=== PATIENT | female | born 1965 | race Hispanic/Latino ===

== ENCOUNTER 2016-07-02 12:52 | Emergency (ER) | payer OTHER ==
[2016-07-02] MEDS ORDERED: VALIUM IV ONE (15:08)
[2016-07-02] MEDS ORDERED: NACL 0.9% 1000 ML 1,000 ML IV ONE (15:08)
--- NOTE | 2016-07-02 15:10 | Emergency Department Report ---
Head Injury w/o Laceration - HPI Chief Complaint: Fall Stated Complaint: AMS Time Seen by Provider: 07/02/16 14:59 Occurred When: Today Mechanism: Fall Location: Temporal Severity: mild Head Inj w/o Lac: Yes Loss of Consciousness, No Nausea, No Blurred Vision, No Altered Mental Status, No Headache Other History: This is a 51-year-old female who does endorse history of binge drinking. She states that she's been binging for the last 3 days. She apparently was with family actually here at the hospital today when she had an episode of seizure activity. She fell and struck her head against a doorknob when she had her seizure activity. It was full body shaking for approximately 2 minutes. This is not a new thing for her. She does have seizure disorder since childhood. It is typical for her with alcohol binging to have a breakthrough seizure. She actually indicates last Tylenol was approximately 3 years ago. She denies any fevers. She denies any head pain at this time actually complains of nothing specifically currently. Family is concerned due to the fall and the head injury. Patient does not report drinking habitually. She denies any other injuries again from this fall. ED General PMH - Past Medical History General Medical History: no medical history - Social History Smoking Status: Current Every Day Smoker ED Neuro ROS - Review of Systems Constitutional: no symptoms reported Eyes (ROS): no symptoms reported Head Injury W/O Lac Exam - Exam General: Vital signs noted. No distress. Alert and acting appropriately. Head: Yes Pupils are PERRL, No Hemotympanum, No Hematoma/Ecchymosis, No Epistaxis, No Stepoff/Deformity, No Laceration, No Abrasion Chest, Abd, & Ext: Yes Clear Lung Sounds, Yes Regular Heart Rhythm, No Neck Pain , No Chest Injury/Pain, No Heart Murmur, No Abdominal Tenderness, No Back Tenderness, No Extremity Injury Neuroligical (Head Inj W/O Lac: Yes Normal Speech, Yes Normal Gait, No Lethargy , No Disorientation, No Focal Numbness, No Focal Weakness Exam: Patient coherent and appropriate at this time. HEENT demonstrates no obvious trauma mouth is edentulous no oral lesions are otherwise noted pupils are reactive to light extraocular movements are noted to be intact. Conjunctivae unremarkable sclera is anicteric. Neck is supple without adenopathy chest is clear to auscultation with good air movement heart is regular no rub or gallop is noted abdomen soft nontender throughout Dr. Reny is no tenderness throughout no midline tenderness appreciated neck demonstrates excellent range of motion no tenderness is appreciated extremities demonstrated good distal pedal pulses throughout neurologically moving all extremities without difficulty here. From here answering questions appropriately and interacting properly with family as well ED Disposition Clinical Impression: Seizure Head injury Qualifiers: Encounter type: initial encounter Qualified Code(s): S09.90XA - Unspecified injury of head, initial encounter Disposition: DISCHARGED TO HOME OR SELFCARE Is pt being admited?: No Does the pt Need Aspirin: No Condition: Stable Instructions: Minor Head Injury (ED) Additional Instructions: No drinking alcohol Referrals: PRIMARY CARE, [Primary Care Provider] - 3-5 Days Time of Disposition: 16:46 Results Result Diagrams: 07/02/16 15:13 07/02/16 15:13 Abnormal lab results 07/02/16 07/02/16 Range/Units 15:13 15:13 WBC 11.7 H (4.5-11.0) K/mm3 MCH 26 L (28-32) pg RDW 25.4 H (13.2-15.2) % Sodium 136 L (137-145) mmol/L Chloride 92.3 L (98-107) mmol/L BUN 6 L (7-17) mg/dL Creatinine 0.3 L (0.7-1.2) mg/dL Glucose 107 H (65-100) mg/dL All other labs normal. Patient is noted here to be appropriate neurologically. She is moving all extremities appropriately and entered answering questions appropriately. I did have a long conversation with patient and family regarding alcohol cessation. I did also have conversation regarding head injury and instructions regarding this. Family will be with the patient tonight will be able to continue to observe her. She did have a CT study done here demonstrating mild scalp hematoma with contusion otherwise unremarkable study. No intracranial bleed was noted. Patient safe for home.
[2016-07-02 15:31] LABS: Hematocrit 39.4 % (30.3-42.9); Hemoglobin 12.9 gm/dl (10.1-14.3); Mean Corpuscular HGB Conc 33 % (30-34); Mean Corpuscular Volume 79 fl (79-97); Platelet Count 161 K/mm3 (140-440); Red Blood Count 5.02 M/mm3 (3.65-5.03); White Blood Count 11.7 K/mm3 (4.5-11.0)
[2016-07-02 15:32] LABS: Mean Corpuscular Hemoglobin 26 pg (28-32); Red Cell Distribution Width 25.4 % (13.2-15.2)
[2016-07-02 15:49] LABS: Alanine Aminotransferase 19 units/L (7-56); Albumin 4.3 g/dL (3.9-5); Albumin/Globulin Ratio 1.3 %; Alkaline Phosphatase 71 units/L (35-129); Anion Gap 20 mmol/L; Bilirubin,Total 0.6 mg/dL (0.1-1.2); Blood Urea Nitrogen 6 mg/dL (7-17); Calcium 9.3 mg/dL (8.4-10.2); Carbon Dioxide 28 mmol/L (22-30); Chloride 92.3 mmol/L (98-107); Glucose 107 mg/dL (65-100); Potassium 3.9 mmol/L (3.6-5.0); Sodium 136 mmol/L (137-145); Total Protein 7.5 g/dL (6.3-8.2)
--- NOTE | 2016-07-02 16:30 | Cat Scan Report ---
FINAL REPORT PROCEDURE: CT HEAD/BRAIN WO CON TECHNIQUE: Computerized tomography of the head was performed without contrast material. HISTORY: Fall pain COMPARISON: No prior studies are available for comparison. FINDINGS: There likely minimal edema in the left parietal scalp. No calvarial fracture is seen. Minimal mucosal thickening is seen in the right maxillary sinus. Mastoid air cells are clear. Cerebral ventricles are normal in size. No acute intracranial hemorrhage or mass effect is seen. No CVA is seen. IMPRESSION: No calvarial fracture or acute intracranial hemorrhage is seen.
[2016-07-02 16:54] LABS: Basophils % (Manual) 0 % (0.0-1.8); Blastocytes % (Manual) 0 %; Eosinophils % (Manual) 0 % (0.0-4.3)
[2016-07-02 16:55] LABS: Anisocytosis 1+; Hypochromasia 1+; Stomatocytes 1+
[2016-07-02 16:56] LABS: Diff Status Complete; Platelet Estimate Consistent w Auto
[2016-07-02 17:27] VITALS: BP 140/73
== END 2016-07-02 17:05 | disposition home or self-care (01) ==
LOC: ED 12:52
DX: S09.90XA Unspecified injury of head, initial encounter (principal); R56.9 Unspecified convulsions; F17.200 Nicotine dependence, unspecified, uncomplicated; W19.XXXA Unspecified fall, initial encounter; Y93.89 Activity, other specified; Y99.9 Unspecified external cause status; Y92.89 Other specified places as the place of occurrence of the external cause
CPT/HCPCS: 36415; 70450; 80053; 85007; 85025; 96361; 96374; 99284; J3360; J7030

== ENCOUNTER 2016-11-21 15:32 | Inpatient (IN) | payer OTHER ==
[2016-11-21 16:36] LABS: Basophils % (Auto) 1.4 % (0.0-1.8); Eosinophils % (Auto) 1.1 % (0.0-4.3); Hematocrit 40.3 % (30.3-42.9); Hemoglobin 13.4 gm/dl (10.1-14.3); Mean Corpuscular HGB Conc 33 % (30-34); Mean Corpuscular Hemoglobin 28 pg (28-32); Mean Corpuscular Volume 84 fl (79-97); Platelet Count 219 K/mm3 (140-440); Red Blood Count 4.81 M/mm3 (3.65-5.03); White Blood Count 7.9 K/mm3 (4.5-11.0)
[2016-11-21 16:37] LABS: Red Cell Distribution Width 20.6 % (13.2-15.2)
[2016-11-21 16:57] LABS: Alanine Aminotransferase 55 units/L (7-56); Albumin 4.3 g/dL (3.9-5); Albumin/Globulin Ratio 1.4 %; Alkaline Phosphatase 69 units/L (35-129); Anion Gap 32 mmol/L; Blood Urea Nitrogen 5 mg/dL (7-17); Calcium 9.1 mg/dL (8.4-10.2); Carbon Dioxide 19 mmol/L (22-30); Chloride 83.8 mmol/L (98-107); Glucose 132 mg/dL (65-100); Potassium 3.7 mmol/L (3.6-5.0); Sodium 131 mmol/L (137-145); Total Protein 7.4 g/dL (6.3-8.2)
[2016-11-21] MEDS ORDERED: LIBRIUM PO ONE (17:14)
[2016-11-21] MEDS ORDERED: BOOSTRIX IM ONE ×2 (17:15→20:15)
--- NOTE | 2016-11-21 17:16 | Emergency Department Report ---
ED General Adult HPI - General Chief complaint: Seizure Stated complaint: SEIZURE Time Seen by Provider: 11/21/16 17:04 Source: patient, family, EMS (ems notes not available at time of chart dictation), RN notes reviewed, old records reviewed Mode of arrival: Stretcher Limitations: No Limitations - History of Present Illness Initial comments: This is a 51-year-old female. She is previously known to me. She reports a history of alcohol abuse, and intermittent binge drinking. She is accompanied by family. Family reports that they were with the patient, and she suddenly had an episode of loss of consciousness. Family reports that there is no convulsive activity, or shaking. Family reports this is never happened before, patient reports this is never happened before. Patient last consumed beers yesterday. The patient complains of mild headache. There is no chest pain. There is no shortness of breath. There is no neck pain. There is no homicidality or suicidality. There is no leg pain. There is no leg swelling. No recent trips greater than 4 hours. No recent hospital admissions. The patient reports that she has no recollection of alcohol withdrawal seizures. She does report that she feels "a little shaky." No cardiac workup recently. -: Sudden Consistency: now resolved Improves with: none Worsens with: none Associated Symptoms: syncope - Related Data Home Medications Medication Instructions Recorded Confirmed Last Taken No Known Home Medications [No 11/21/16 11/21/16 Unknown Reported Home Medications] Allergies Allergy/AdvReac Type Severity Reaction Status Date / Time codeine Allergy Rash Verified 11/21/16 16:27 ED Review of Systems ROS: Stated complaint: SEIZURE Other details as noted in HPI Constitutional: malaise, weakness Eyes: denies: vision change ENT: denies: epistaxis Respiratory: denies: shortness of breath Cardiovascular: syncope Gastrointestinal: denies: abdominal pain Genitourinary: denies: dysuria Musculoskeletal: denies: back pain Skin: lesions Neurological: headache, weakness Psychiatric: denies: homicidal thoughts, suicidal thoughts ED Past Medical Hx - Past Medical History Previous Medical History?: Yes Hx Hypertension: Yes Hx Seizures: Yes Hx Psychiatric Treatment: Yes (ETOH abuse) - Social History Smoking Status: Current Every Day Smoker Substance Use Type: Alcohol - Medications Home Medications: Home Medications Medication Instructions Recorded Confirmed Last Taken Type No Known Home Medications [No 11/21/16 11/21/16 Unknown History Reported Home Medications] ED Physical Exam - General Limitations: No Limitations General appearance: alert, in no apparent distress - Head Head exam: Present: normocephalic, other (multiple superficial facial abrasions are noted) - Eye Eye exam: Present: normal appearance, PERRL, EOMI, other (visual acuity intact to finger counting, color perception, reading at a close distance). Absent: nystagmus - ENT ENT exam: Present: normal exam, normal orophraynx, mucous membranes moist, TM's normal bilaterally, normal external ear exam, other (negative nasal septal hematoma. Negative hemotympanum) - Neck Neck exam: Present: normal inspection, full ROM. Absent: tenderness, meningismus - Respiratory Respiratory exam: Present: normal lung sounds bilaterally. Absent: respiratory distress, wheezes, rales, rhonchi, stridor, chest wall tenderness, accessory muscle use, decreased breath sounds, prolonged expiratory - Cardiovascular Cardiovascular Exam: Present: regular rate, normal rhythm, normal heart sounds. Absent: bradycardia, tachycardia, irregular rhythm, systolic murmur, diastolic murmur, rubs, gallop - GI/Abdominal GI/Abdominal exam: Present: soft, normal bowel sounds. Absent: distended, tenderness, guarding, rebound, rigid, pulsatile mass - Extremities Exam Extremities exam: Present: normal inspection, full ROM, normal capillary refill. Absent: pedal edema, joint swelling, calf tenderness - Back Exam Back exam: Present: normal inspection, full ROM. Absent: tenderness, CVA tenderness (R), CVA tenderness (L), muscle spasm, paraspinal tenderness, vertebral tenderness - Neurological Exam Neurological exam: Present: alert (tongue fasciculations noted), oriented X3, other (Extraocular movements intact. Tongue midline. No facial droop. Facial sensation intact to light touch in the V1, V2, V3 distribution bilaterally. 5 and 5 strength in 4 extremities.. Sensation is intact to light touch in 4 extremities.). Absent: motor sensory deficit - Psychiatric Psychiatric exam: Present: anxious. Absent: homicidal ideation, suicidal ideation - Skin Skin exam: Present: warm, dry, intact, normal color. Absent: rash ED Course Vital Signs 11/21/16 11/21/16 11/21/16 15:40 15:45 18:45 Temperature 97.6 F Pulse Rate 104 H 94 H 82 Respiratory 18 16 16 Rate Blood Pressure 142/82 Blood Pressure 139/81 144/75 [Right] O2 Sat by Pulse 96 94 93 Oximetry 11/21/16 11/21/16 20:17 22:54 Temperature Pulse Rate 84 83 Respiratory 16 16 Rate Blood Pressure Blood Pressure 152/74 127/76 [Right] O2 Sat by Pulse 93 92 Oximetry ED Medical Decision Making - Lab Data Result diagrams: 11/22/16 05:37 11/22/16 05:37 Vital Signs 11/21/16 15:40 Temperature 97.6 F Pulse Rate 104 H Respiratory 18 Rate Blood Pressure 142/82 O2 Sat by Pulse 96 Oximetry Lab Results 11/21/16 11/21/16 11/21/16 Range/Units 15:45 15:45 15:45 WBC 7.9 (4.5-11.0) K/mm3 RBC 4.81 (3.65-5.03) M/mm3 Hgb 13.4 (10.1-14.3) gm/dl Hct 40.3 (30.3-42.9) % MCV 84 (79-97) fl MCH 28 (28-32) pg MCHC 33 (30-34) % RDW 20.6 H (13.2-15.2) % Plt Count 219 (140-440) K/mm3 Lymph % (Auto) 14.9 (13.4-35.0) % Lucas % (Auto) 4.9 (0.0-7.3) % Eos % (Auto) 1.1 (0.0-4.3) % Baso % (Auto) 1.4 (0.0-1.8) % Lymph # 1.2 (1.2-5.4) K/mm3 Lucas # 0.4 (0.0-0.8) K/mm3 Eos # 0.1 (0.0-0.4) K/mm3 Baso # 0.1 (0.0-0.1) K/mm3 Seg Neutrophils % 77.7 H (40.0-70.0) % Seg Neutrophils # 6.2 (1.8-7.7) K/mm3 PT (12.2-14.9) Sec. INR (0.87-1.13) Sodium 131 L (137-145) mmol/L Potassium 3.7 (3.6-5.0) mmol/L Chloride 83.8 L (98-107) mmol/L Carbon Dioxide 19 L (22-30) mmol/L Anion Gap 32 mmol/L BUN 5 L (7-17) mg/dL Creatinine 0.4 L (0.7-1.2) mg/dL Estimated GFR > 60 ml/min BUN/Creatinine Ratio 12.50 % Glucose 132 H (65-100) mg/dL Calcium 9.1 (8.4-10.2) mg/dL Phosphorus (2.5-4.5) mg/dL Magnesium 1.80 (1.7-2.3) mg/dL Total Bilirubin 0.60 (0.1-1.2) mg/dL AST 69 H (5-40) units/L ALT 55 (7-56) units/L Alkaline Phosphatase 69 (35-129) units/L Total Creatine Kinase (30-135) units/L Total Protein 7.4 (6.3-8.2) g/dL Albumin 4.3 (3.9-5) g/dL Albumin/Globulin Ratio 1.4 % Plasma/Serum Alcohol < 0.01 (0-0.07) gm% 11/21/16 11/21/16 Range/Units 17:25 17:25 WBC (4.5-11.0) K/mm3 RBC (3.65-5.03) M/mm3 Hgb (10.1-14.3) gm/dl Hct (30.3-42.9) % MCV (79-97) fl MCH (28-32) pg MCHC (30-34) % RDW (13.2-15.2) % Plt Count (140-440) K/mm3 Lymph % (Auto) (13.4-35.0) % Lucas % (Auto) (0.0-7.3) % Eos % (Auto) (0.0-4.3) % Baso % (Auto) (0.0-1.8) % Lymph # (1.2-5.4) K/mm3 Lucas # (0.0-0.8) K/mm3 Eos # (0.0-0.4) K/mm3 Baso # (0.0-0.1) K/mm3 Seg Neutrophils % (40.0-70.0) % Seg Neutrophils # (1.8-7.7) K/mm3 PT 12.6 (12.2-14.9) Sec. INR 0.90 (0.87-1.13) Sodium (137-145) mmol/L Potassium (3.6-5.0) mmol/L Chloride (98-107) mmol/L Carbon Dioxide (22-30) mmol/L Anion Gap mmol/L BUN (7-17) mg/dL Creatinine (0.7-1.2) mg/dL Estimated GFR ml/min BUN/Creatinine Ratio % Glucose (65-100) mg/dL Calcium (8.4-10.2) mg/dL Phosphorus 2.70 (2.5-4.5) mg/dL Magnesium 2.00 (1.7-2.3) mg/dL Total Bilirubin (0.1-1.2) mg/dL AST (5-40) units/L ALT (7-56) units/L Alkaline Phosphatase (35-129) units/L Total Creatine Kinase 122 (30-135) units/L Total Protein (6.3-8.2) g/dL Albumin (3.9-5) g/dL Albumin/Globulin Ratio % Plasma/Serum Alcohol (0-0.07) gm% - EKG Data -: EKG Interpreted by Me - EKG Data When compared to previous EKG there are: previous EKG unavailable 11/21/16 19:51 Normal sinus, 96 bpm, normal axis, QTC 477 ms, poor R wave progression, abnormal EKG, not morphologically consistent with STEMI - Radiology Data Radiology results: report reviewed, image reviewed interpreted by me: X-ray the chest is negative Noncontrast CT scan of the brain is negative - Medical Decision Making Seizure, syncope, alcohol withdrawal seizure, structural cardiac disease, acute coronary syndrome, Assessment and plan: 51-year-old female with history of syncope/loss of consciousness. The family is quite certain that there is no convulsive activity. The patient is clinically sober at this time, with a GCS of 15, NIH score of 0. She is minimal tongue fasciculations at this time, there is no midline cervical spine pain or tenderness, patient does not require 1013, nor does she require imaging of the cervical spine. I highly doubt alcohol withdrawal seizure, although it seems somewhat atypical that the patient would simply lose consciousness without convulsant like activity. Given that this is the leading diagnosis, I do not believe the patient requires antiepileptic drug therapy at this time. She is treated empirically with IV fluids/banana bag, and chlordiazepoxide. She is given a tetanus vaccination. Noncontrast CT scan of the brain is negative. Laboratory studies to restrict hypochloremia, otherwise mostly unremarkable. Given uncertainty for syncope versus alcohol withdrawal seizure, plan to admit the patient for observation and treatment. The case is presented to the Hospital physician, Dr. Carl, who accepts the patient to his service. Critical care attestation.: If time is entered above; I have spent that time in minutes in the direct care of this critically ill patient, excluding procedure time. ED Disposition Clinical Impression: Hypochloremia Syncope Qualifiers: Encounter type: initial encounter Qualified Code(s): T67.1XXA - Heat syncope, initial encounter Alcohol dependence Qualifiers: Substance use status: uncomplicated Qualified Code(s): F10.20 - Alcohol dependence, uncomplicated Disposition: DC-09 OP ADMIT IP TO THIS HOSP Is pt being admited?: Yes Condition: Good
--- NOTE | 2016-11-21 17:38 | Admit Criteria Form ---
Admission Criteria Documentation: SYNCOPE Clinical Indications for Admission to Inpatient Care ( Place 'X' for any and all applicable criteria): Admission is indicated for syncope and 1 or more of the following(1)(2)(3)(4)(5) (6)(7): [ ]I. Hemodynamic instability [ ]II. Suspicion of imminently dangerous cause (eg, subarachnoid hemorrhage, pulmonary embolism) [ ]III. Syncope causing injury requiring hospitalization [ ]IV. Respiratory distress [ ]V. Acute coronary syndrome identified. See Myocardial Infarction or Angina guideline [X]V. Inpatient admission required rather than observation care (Also use Syncope: Observation Care Criteria as appropriate) because of 1 or more of the following: [ ]1) Cardiac arrhythmias of immediate concern identified or strongly suspected (eg, needs electrophysiologic study) [ ]2) Structural cardiac disorder (eg, aortic stenosis) suspected as cause that requires immediate treatment [ ]3) Neurologic signs or symptoms that are severe or persistent (eg, stroke, seizures, altered mental status) [ ]4) Severe electrolyte abnormalities requiring inpatient care [ ]5) Respiratory symptoms (eg, dyspnea, tachypnea) that are severe or persistent [ ]6) Dehydration that is severe or persistent [ ]7) Continuous intravenous infusion of anticoagulation, platelet inhibitor, vasoactive, or antiarrhythmic medication(15)(16 [ ]8) Pulmonary artery catheter monitoring [ ]9) Temporary pacemaker placement [ ]10) Emergent cardioversion [X]11) Other condition,treatment,or monitoring requiring inpatient admission Extended stay beyond goal length of stay may be needed for(28) [ ]a) Dangerous arrhythmia(15)(23)(27)(29) [ ]b) Myocardial ischemia [ ]c) Seizure disorder [ ]d) Syncope-related injuries The original [employer] content created by [email or web address] has been revised. The portions of the content which have been revised are identified through the use of italic text or in bold, and [email or web address] has neither reviewed nor approved the modified material. All other unmodified content is copyright [email or web address]. Please see references footnoted in the original [email or web address] edition 2017 Admission Criteria Met: Yes
[2016-11-21 17:57] LABS: Phosphorous 2.7 mg/dL (2.5-4.5)
--- NOTE | 2016-11-21 17:57 | Cat Scan Report ---
FINAL REPORT EXAM: CT HEAD/BRAIN WO CON HISTORY: seizure vs syncope TECHNIQUE: CT of the head was performed without intravenous contrast. PRIORS: 07/02/2016. FINDINGS: The ventricles are normal in shape and position. The ventricles are nondilated. No intracranial hemorrhage, mass, mass effect, midline shift or evidence of acute ischemic infarct. The basilar cisterns are patent. The paranasal sinuses are clear. There is midline frontal extracranial soft tissue swelling. The calvarium is intact. The orbits are intact. The mastoid air cells are clear. IMPRESSION: 1. No acute intracranial abnormality. 2. Frontal extracranial soft tissue swelling.
[2016-11-21 18:06] LABS: INR 0.9 (0.87-1.13)
[2016-11-21] MEDS ORDERED: VITAMIN B-1 100 MG, FOLVITE 1 MG, INFUVITE 10 ML in NACL 0.9% 1000 ML 1,000 ML IV ONE (18:14)
[2016-11-21] MEDS ORDERED: LIBRIUM ONE (20:14)
[2016-11-21] MEDS ORDERED: ZOFRAN IV PRN (21:57)
[2016-11-21] MEDS ORDERED: MILK OF MAGNESIA PO PRN (21:57)
[2016-11-21] MEDS ORDERED: DULCOLAX PR PRN (21:57)
[2016-11-21] MEDS ORDERED: PERCOCET 5/325 PO PRN (21:57)
[2016-11-21] MEDS ORDERED: TYLENOL PO PRN (21:57)
[2016-11-21] MEDS ORDERED: AMBIEN PO PRN (21:57)
[2016-11-21] MEDS ORDERED: DILAUDID IV PRN (21:57)
--- NOTE | 2016-11-21 21:57 | History and Physical Report ---
History of Present Illness Date of examination: 11/21/16 Date of admission: 11/21/16 Chief complaint: Passed out from a sitting posture around 3 pm History of present illness: 51 y/o female with no significant PMH except for Etoh and Nicotine dependence comes in for passing out suddenly.She was in a sitting posture and felt lightheaded.Fell to ground and sustained superficial abrasions to face.LOC for a a minute or two.No seizures.Family was a witness to her syncope.No chest pain.No SOB .No diaphoresis /Palpitations. Past History Past Medical History: No medical history Past Surgical History: No surgical history Social history: smoking (1 ppd), alcohol abuse (6 to 8 beers per day) Family history: no significant family history Medications and Allergies Allergies Allergy/AdvReac Type Severity Reaction Status Date / Time codeine Allergy Rash Verified 11/21/16 16:27 Home Medications Medication Instructions Recorded Confirmed Last Taken Type No Known Home Medications [No 11/21/16 11/21/16 Unknown History Reported Home Medications] Active Meds: Active Medications Thiamine HCl 100 mg/ Folic Acid 1 mg/ Multivitamins/Minerals 10 ml/ Sodium Chloride 1,011.2 mls @ 250 mls/hr IV ONCE.ED ONE Stop: 11/21/16 22:16 Review of Systems All systems: negative Constitutional: no weight loss, no weight gain, no fever, no chills, no sweats, no night sweats Ears, nose, mouth and throat: other (Facial abrasions alvarado nose), no dysphagia, no hoarseness, no sore throat, no swelling in throat Breasts: deferred Cardiovascular: syncope, lightheadedness, no chest pain, no orthopnea, no palpitations, no rapid/irregular heart beat, no edema, no shortness of breath, no dyspnea on exertion, no paroxysmal nocturnal dyspnea Respiratory: no cough, no cough with sputum, no excessive sputum, no hemoptysis , no shortness of breath, no dyspnea on exertion, no congestion, no wheezing Gastrointestinal: no abdominal pain, no nausea, no vomiting, no diarrhea, no constipation, no change in bowel habits, no hematemesis, no coffee ground emesis Genitourinary Female: no dysuria, no urinary frequency, no urgency, no stress incontinence, no post void dribbling, no incomplete emptying, no urge incontinence Musculoskeletal: no neck stiffness, no neck pain, no shooting arm pain, no arm numbness/tingling, no low back pain, no shooting leg pain, no leg numbness/ tingling, no redness of joints Integumentary: no rash, no pruritis, no redness, no sores, no wounds, no jaundice, no boils, no blisters Neurological: syncope, no head injury, no transient paralysis, no paralysis, no weakness, no parathesias, no numbness, no tingling, no seizures, no tremors, no ataxia, no lack of coordination Psychiatric: no anxiety, no memory loss, no change in sleep habits, no sleep disturbances, no insomnia, no hypersomnia, no change in appetite, no change in libido Endocrine: no cold intolerance, no heat intolerance, no polyphagia, no excessive thirst, no polydipsia, no polyuria, no nocturia, no excessive sweating , no flushing, no weight change Hematologic/Lymphatic: no easy bruising, no easy bleeding Allergic/Immunologic: no urticaria, no allergic rhinitis, no wheezing Exam - Physical Exam Narrative exam: In No distress - Constitutional Vitals: Temp Pulse Resp BP Pulse Ox 97.6 F 104 H 18 142/82 96 11/21/16 15:40 11/21/16 15:40 11/21/16 15:40 11/21/16 15:40 11/21/16 15:40 General appearance: Present: no acute distress, well-nourished - EENT Eyes: Present: PERRL ENT: hearing intact, clear oral mucosa, other (Facial abrasions alvarado nose) - Neck Neck: Present: supple, normal ROM - Respiratory Respiratory effort: normal Respiratory: bilateral: CTA - Cardiovascular Heart rate: 76 Rhythm: regular Heart Sounds: Present: S1 & S2. Absent: rub, click - Extremities Extremities: no ischemia, pulses intact, pulses symmetrical, No edema Peripheral Pulses: within normal limits - Abdominal General gastrointestinal: Present: soft, non-tender, non-distended, normal bowel sounds Female genitourinary: Present: normal - Integumentary Integumentary: Present: clear, warm, dry - Musculoskeletal Musculoskeletal: gait normal, strength equal bilaterally - Psychiatric Psychiatric: appropriate mood/affect, intact judgment & insight - Neurologic Neurologic: CNII-XII intact, moves all extremities - Allied Health Allied health notes reviewed: nursing, case management Results - Labs CBC & Chem 7: 11/21/16 15:45 11/21/16 15:45 Labs: Laboratory Last Values WBC 7.9 K/mm3 (4.5-11.0) 11/21/16 15:45 RBC 4.81 M/mm3 (3.65-5.03) 11/21/16 15:45 Hgb 13.4 gm/dl (10.1-14.3) 11/21/16 15:45 Hct 40.3 % (30.3-42.9) 11/21/16 15:45 MCV 84 fl (79-97) 11/21/16 15:45 MCH 28 pg (28-32) 11/21/16 15:45 MCHC 33 % (30-34) 11/21/16 15:45 RDW 20.6 % (13.2-15.2) H 11/21/16 15:45 Plt Count 219 K/mm3 (140-440) 11/21/16 15:45 Lymph % (Auto) 14.9 % (13.4-35.0) 11/21/16 15:45 [place] % (Auto) 4.9 % (0.0-7.3) 11/21/16 15:45 Eos % (Auto) 1.1 % (0.0-4.3) 11/21/16 15:45 Baso % (Auto) 1.4 % (0.0-1.8) 11/21/16 15:45 Lymph # 1.2 K/mm3 (1.2-5.4) 11/21/16 15:45 [place] # 0.4 K/mm3 (0.0-0.8) 11/21/16 15:45 Eos # 0.1 K/mm3 (0.0-0.4) 11/21/16 15:45 Baso # 0.1 K/mm3 (0.0-0.1) 11/21/16 15:45 Seg Neutrophils % 77.7 % (40.0-70.0) H 11/21/16 15:45 Seg Neutrophils # 6.2 K/mm3 (1.8-7.7) 11/21/16 15:45 PT 12.6 Sec. (12.2-14.9) 11/21/16 17:25 INR 0.90 (0.87-1.13) 11/21/16 17:25 Sodium 131 mmol/L (137-145) L 11/21/16 15:45 Potassium 3.7 mmol/L (3.6-5.0) 11/21/16 15:45 Chloride 83.8 mmol/L (98-107) L 11/21/16 15:45 Carbon Dioxide 19 mmol/L (22-30) L 11/21/16 15:45 Anion Gap 32 mmol/L 11/21/16 15:45 BUN 5 mg/dL (7-17) L 11/21/16 15:45 Creatinine 0.4 mg/dL (0.7-1.2) L 11/21/16 15:45 Estimated GFR > 60 ml/min 11/21/16 15:45 BUN/Creatinine Ratio 12.50 % 11/21/16 15:45 Glucose 132 mg/dL (65-100) H 11/21/16 15:45 Calcium 9.1 mg/dL (8.4-10.2) 11/21/16 15:45 Phosphorus 2.70 mg/dL (2.5-4.5) 11/21/16 17:25 Magnesium 2.00 mg/dL (1.7-2.3) 11/21/16 17:25 Total Bilirubin 0.60 mg/dL (0.1-1.2) 11/21/16 15:45 AST 69 units/L (5-40) H 11/21/16 15:45 ALT 55 units/L (7-56) 11/21/16 15:45 Alkaline Phosphatase 69 units/L (35-129) 11/21/16 15:45 Total Creatine Kinase 122 units/L (30-135) 11/21/16 17:25 Total Protein 7.4 g/dL (6.3-8.2) 11/21/16 15:45 Albumin 4.3 g/dL (3.9-5) 11/21/16 15:45 Albumin/Globulin Ratio 1.4 % 11/21/16 15:45 Plasma/Serum Alcohol < 0.01 gm% (0-0.07) 11/21/16 15:45 Short CBC 11/21/16 Range/Units 15:45 WBC 7.9 (4.5-11.0) K/mm3 Hgb 13.4 (10.1-14.3) gm/dl Hct 40.3 (30.3-42.9) % Plt Count 219 (140-440) K/mm3 BMP 11/21/16 15:45 Sodium 131 L Potassium 3.7 Chloride 83.8 L Carbon Dioxide 19 L BUN 5 L Creatinine 0.4 L Glucose 132 H Calcium 9.1 Cardiac Enzymes 11/21/16 11/21/16 Range/Units 17:25 23:23 Total Creatine Kinase 122 132 (30-135) units/L CK-MB (CK-2) 3.6 (0.0-4.0) ng/mL Troponin T < 0.010 (0.00-0.029) ng/mL Liver Function 11/21/16 Range/Units 15:45 Total Bilirubin 0.60 (0.1-1.2) mg/dL AST 69 H (5-40) units/L ALT 55 (7-56) units/L Alkaline Phosphatase 69 (35-129) units/L Albumin 4.3 (3.9-5) g/dL Urine 11/21/16 Range/Units 21:16 Urine Color Straw (Yellow) Urine pH 5.0 (5.0-7.0) Ur Specific [place] 1.005 (1.003-1.030) Urine Protein <15 mg/dl (Negative) mg/dL Urine Glucose (UA) Neg (Negative) mg/dL - Imaging and Cardiology EKG: report reviewed (NSR non specific ST T wave changes) CT Scan - head: report reviewed (NAF) Assessment and Plan Advance Directives: Yes (Full code) VTE prophylaxis?: Chemical Plan of care discussed with patient/family: Yes - Patient Problems (1) Syncope Current Visit: Yes Status: Acute Qualifiers: Syncope type: S Encounter type: initial encounter Qualified Code(s): T67.1XXA - Heat syncope, initial encounter Plan to address problem: Probably vasovagal or secondary to dehydration due to Etoh.Stress test and CDS ordered.IV fluids for now (2) Alcohol dependence Current Visit: Yes Status: Acute Qualifiers: Substance use status: uncomplicated Complication of substance-induced condition: C Qualified Code(s): F10.20 - Alcohol dependence, uncomplicated Plan to address problem: Initiated [facility] protocol (3) Nicotine dependence Current Visit: Yes Status: Chronic Qualifiers: Nicotine product type: cigarettes Substance use status: S Qualified Code( s): F17.210 - Nicotine dependence, cigarettes, uncomplicated Plan to address problem: Counselled and Nicoderm patch initiated (4) DVT prophylaxis Current Visit: Yes Status: Acute (5) DVT prophylaxis Current Visit: Yes Status: Acute (6) DVT prophylaxis Current Visit: Yes Status: Acute Plan to address problem: Lovenox 40 mg sq qd
[2016-11-21] MEDS ORDERED: D5NS 1,000 ML IV SCH (22:00)
[2016-11-21] MEDS ORDERED: HABITROL TD ONE (22:02)
[2016-11-21 22:21] LABS: Bacteria,Urine 1+ /HPF (Negative); Bilirubin,Urine NEG (Negative); Blood,Urine SM (Negative); Ketones,Urine 80 mg/dL (Negative); Leukocyte Esterase,Urine NEG (Negative); Nitrite,Urine NEG (Negative); Protein,Urine <15 mg/dL mg/dL (Negative); Urobilinogen,Urine < 2.0 mg/dL (<2.0); WBC,Urine < 1.0 /HPF (0.0-6.0)
[2016-11-22 00:10] LABS: Creatine Kinase 132 units/L (30-135); Creatine Kinase MB 3.6 ng/mL (0.0-4.0)
[2016-11-22 06:38] LABS: Basophils % (Auto) 0.9 % (0.0-1.8); Eosinophils % (Auto) 3.3 % (0.0-4.3); Hematocrit 39.4 % (30.3-42.9); Hemoglobin 13.3 gm/dl (10.1-14.3); Mean Corpuscular HGB Conc 34 % (30-34); Mean Corpuscular Hemoglobin 28 pg (28-32); Mean Corpuscular Volume 83 fl (79-97); Platelet Count 184 K/mm3 (140-440); Red Blood Count 4.74 M/mm3 (3.65-5.03); White Blood Count 5.3 K/mm3 (4.5-11.0)
[2016-11-22 06:54] LABS: Creatine Kinase MB 3.6 ng/mL (0.0-4.0)
[2016-11-22 06:57] LABS: Alanine Aminotransferase 44 units/L (7-56); Albumin/Globulin Ratio 1.5 %; Alkaline Phosphatase 63 units/L (35-129); Anion Gap 22 mmol/L; Blood Urea Nitrogen 3 mg/dL (7-17); Carbon Dioxide 25 mmol/L (22-30); Chloride 93.8 mmol/L (98-107); Creatine Kinase 115 units/L (30-135); Glucose 79 mg/dL (65-100); Potassium 3.8 mmol/L (3.6-5.0); Sodium 137 mmol/L (137-145); Total Protein 6.7 g/dL (6.3-8.2)
[2016-11-22 07:01] LABS: Red Cell Distribution Width 20.3 % (13.2-15.2)
--- NOTE | 2016-11-22 07:46 | XRay Report ---
AP CHEST: HISTORY: Syncope AP view of the chest demonstrates a normal mediastinal and cardiac contour with clear lungs and normal bony and soft tissue structures. IMPRESSION: Unremarkable AP chest.
[2016-11-22] MEDS ORDERED: 1: FOLVITE 1 MG, INFUVITE 10 ML, VITAMIN B-1 100 MG in NACL 0.9% 1000 ML 988.8 ML 2: NA IV SCH (09:00)
--- NOTE | 2016-11-22 09:09 | Progress Note ---
Assessment and Plan Assessment and plan: 51 y/o female with no significant PMH except for Etoh and Nicotine dependence comes in for passing out suddenly.She was in a sitting posture and felt lightheaded. Fell to ground and sustained superficial abrasions to face. LOC for a a minute or two. No seizures. Family was a witness to her syncope. No chest pain. No SOB . No diaphoresis /Palpitations. No neck pain. She does demonstrate full range of motion in her neck. She reports a prior episode about 6 months ago similar to the same incident. She denies any seizure history. (1) Syncope Current Visit: Yes Status: Acute Qualifiers: Syncope type: S Encounter type: initial encounter Qualified Code(s): T67.1XXA - Heat syncope, initial encounter Plan to address problem: Probably vasovagal or secondary to dehydration due to Etoh.Stress test and CDS ordered.IV fluids for now will add echocardiogram and considering prior episode will benefit from cardiolology eval for possible event monitor. (2) Alcohol dependence Current Visit: Yes Status: Acute Qualifiers: Substance use status: uncomplicated Complication of substance-induced condition: C Qualified Code(s): F10.20 - Alcohol dependence, uncomplicated Plan to address problem: Initiated [facility] protocol CHANGE BANANA NAG TO po FOLIC ACID, THIAMINE AND MVI (3) Nicotine dependence Current Visit: Yes Status: Chronic Qualifiers: Nicotine product type: cigarettes Substance use status: S Qualified Code( s): F17.210 - Nicotine dependence, cigarettes, uncomplicated Plan to address problem: Counselled for 15 mins, resources provided and Nicoderm patch initiated (4) Facial abrasion No fractures noted. (5)DVT prophylaxis Current Visit: Yes Status: Acute Lovenox 40 mg sq qd Disposition: In AM if no repeat event. plan of care discussed with patient and spouse. History Interval history: Patient's and examined this morning reports no further symptoms. Denies any dizziness or shaking episodes. Reports prior events 6 months ago similar to the same events where she had a syncopal episode without any AURA. She had a time did not follow up with any physician but was seen in the emergency room. Family member at bedside denied any seizure-like activity. No other adverse event reported by nursing staff Hospitalist Physical - Physical exam Narrative exam: VITAL SIGNS: Reviewed. GENERAL: The patient appeared well nourished and normally developed. Chronic smoker's cough. Vital signs as documented. HEAD: No signs of head trauma. EYES: Pupils are equal. Extraocular motions intact. EARS: Hearing grossly intact. MOUTH: Oropharynx is normal. NECK: No adenopathy, no JVD. CHEST: Chest with clear breath sounds bilaterally. No wheezes, rales, or rhonchi. CARDIAC: Regular rate and rhythm. S1 and S2, without murmurs, gallops, or rubs. VASCULAR: No Edema. Peripheral pulses normal and equal in all extremities. ABDOMEN: Soft, without detectable tenderness. No sign of distention. No rebound or guarding, and no masses palpated. Bowel Sounds normal. MUSCULOSKELETAL: Good range of motion of all major joints. Extremities without clubbing, cyanosis or edema. NEUROLOGIC EXAM: Alert and oriented x 3. No focal sensory or strength deficits. Speech normal. Follows commands. PSYCHIATRIC: Mood normal. SKIN: Facial abrasions on the forehead and also the bridge of the nose. No tenderness appreciated. - Constitutional Vitals: Temp Pulse Resp BP Pulse Ox 97.7 F 76 16 172/86 93 11/22/16 08:44 11/22/16 08:44 11/22/16 08:44 11/22/16 08:44 11/22/16 08:44 General appearance: Present: no acute distress, well-nourished Results - Labs CBC & Chem 7: 11/22/16 05:37 11/22/16 05:37 Labs: Laboratory Last Values WBC 5.3 K/mm3 (4.5-11.0) 11/22/16 05:37 RBC 4.74 M/mm3 (3.65-5.03) 11/22/16 05:37 Hgb 13.3 gm/dl (10.1-14.3) 11/22/16 05:37 Hct 39.4 % (30.3-42.9) 11/22/16 05:37 MCV 83 fl (79-97) 11/22/16 05:37 MCH 28 pg (28-32) 11/22/16 05:37 MCHC 34 % (30-34) 11/22/16 05:37 RDW 20.3 % (13.2-15.2) H 11/22/16 05:37 Plt Count 184 K/mm3 (140-440) 11/22/16 05:37 Lymph % (Auto) 22.0 % (13.4-35.0) 11/22/16 05:37 [place] % (Auto) 8.4 % (0.0-7.3) H 11/22/16 05:37 Eos % (Auto) 3.3 % (0.0-4.3) 11/22/16 05:37 Baso % (Auto) 0.9 % (0.0-1.8) 11/22/16 05:37 Lymph # 1.2 K/mm3 (1.2-5.4) 11/22/16 05:37 [place] # 0.4 K/mm3 (0.0-0.8) 11/22/16 05:37 Eos # 0.2 K/mm3 (0.0-0.4) 11/22/16 05:37 Baso # 0.0 K/mm3 (0.0-0.1) 11/22/16 05:37 Seg Neutrophils % 65.4 % (40.0-70.0) 11/22/16 05:37 Seg Neutrophils # 3.4 K/mm3 (1.8-7.7) 11/22/16 05:37 PT 12.6 Sec. (12.2-14.9) 11/21/16 17:25 INR 0.90 (0.87-1.13) 11/21/16 17:25 Sodium 137 mmol/L (137-145) 11/22/16 05:37 Potassium 3.8 mmol/L (3.6-5.0) 11/22/16 05:37 Chloride 93.8 mmol/L (98-107) L 11/22/16 05:37 Carbon Dioxide 25 mmol/L (22-30) 11/22/16 05:37 Anion Gap 22 mmol/L 11/22/16 05:37 BUN 3 mg/dL (7-17) L 11/22/16 05:37 Creatinine 0.3 mg/dL (0.7-1.2) L 11/22/16 05:37 Estimated GFR > 60 ml/min 11/22/16 05:37 BUN/Creatinine Ratio 10.00 % 11/22/16 05:37 Glucose 79 mg/dL (65-100) 11/22/16 05:37 Calcium 9.0 mg/dL (8.4-10.2) 11/22/16 05:37 Phosphorus 2.70 mg/dL (2.5-4.5) 11/21/16 17:25 Magnesium 2.00 mg/dL (1.7-2.3) 11/21/16 17:25 Total Bilirubin 0.60 mg/dL (0.1-1.2) 11/22/16 05:37 AST 48 units/L (5-40) H 11/22/16 05:37 ALT 44 units/L (7-56) 11/22/16 05:37 Alkaline Phosphatase 63 units/L (35-129) 11/22/16 05:37 Total Creatine Kinase 115 units/L (30-135) 11/22/16 05:37 CK-MB (CK-2) 3.6 ng/mL (0.0-4.0) 11/22/16 05:37 CK-MB (CK-2) Rel Index 3.1 (0-4) 11/22/16 05:37 Troponin T < 0.010 ng/mL (0.00-0.029) 11/22/16 05:37 Total Protein 6.7 g/dL (6.3-8.2) 11/22/16 05:37 Albumin 4.0 g/dL (3.9-5) 11/22/16 05:37 Albumin/Globulin Ratio 1.5 % 11/22/16 05:37 Urine Color Straw (Yellow) 11/21/16 21:16 Urine Turbidity Clear (Clear) 11/21/16 21:16 Urine pH 5.0 (5.0-7.0) 11/21/16 21:16 Ur Specific [place] 1.005 (1.003-1.030) 11/21/16 21:16 Urine Protein <15 mg/dl mg/dL (Negative) 11/21/16 21:16 Urine Glucose (UA) Neg mg/dL (Negative) 11/21/16 21:16 Urine Ketones 80 mg/dL (Negative) 11/21/16 21:16 Urine Blood Sm (Negative) 11/21/16 21:16 Urine Nitrite Neg (Negative) 11/21/16 21:16 Urine Bilirubin Neg (Negative) 11/21/16 21:16 Urine Urobilinogen < 2.0 mg/dL (<2.0) 11/21/16 21:16 Ur Leukocyte Esterase Neg (Negative) 11/21/16 21:16 Urine WBC (Auto) < 1.0 /HPF (0.0-6.0) 11/21/16 21:16 Urine RBC (Auto) 3.0 /HPF (0.0-6.0) 11/21/16 21:16 U Epithel Cells (Auto) 1.0 /HPF (0-13.0) 11/21/16 21:16 Urine Bacteria (Auto) 1+ /HPF (Negative) 11/21/16 21:16 Plasma/Serum Alcohol < 0.01 gm% (0-0.07) 11/21/16 15:45 - Imaging and Cardiology Chest x-ray: image reviewed (no acute pathology) CT Scan - head: image reviewed (no acute pathology noted)
--- NOTE | 2016-11-22 10:04 | Event Note ---
Date: 11/22/16 Stress test cancelled Lexiscan contraindicated in patients thought to have active uncontrolled seizures Patient denies chest pain or shortness of breath. She admits alcohol binging on Sunday with 6 pack beer. She admits to resting tremors when she does not drink alcohol. Agree with echo, carotid US, and 24 hour tele monitoring Alcohol abstinence. Recommendations: Stress test with lexiscan can be reordered when seizure activity is rule out. Outpatient follow-up with [facility] for stress test and event monitor Discussed with patient
--- NOTE | 2016-11-22 10:54 | Discharge Summary ---
Providers - Providers Date of Admission: 11/21/16 21:57 Attending physician: MAYRA KAUFMAN MD 11/22/16 09:10 Consult to Physician [CONS] Routine Consulting Provider: RUDY REILLY Reason For Exam: recurrent syncope Place consult to:: [facility] Notified:: jessica Was contact made?: Yes If yes, spoke with:: jessica Time called:: 09:26 Primary care physician: MARIELLA LIRA MD Hospitalization Condition: Good Exam - Constitutional Vitals: Temp Pulse Resp BP Pulse Ox 97.7 F 76 16 172/86 93 11/22/16 08:44 11/22/16 08:44 11/22/16 08:44 11/22/16 08:44 11/22/16 08:44 Plan Follow up with: MARIELLA LIRA MD [Primary Care Provider] - 3-5 Days
[2016-11-22] MEDS: LOVENOX SUB-Q SCH (11:20)
[2016-11-22] MEDS: VITAMIN B-1 PO SCH (11:20)
[2016-11-22] MEDS: THERAGRAN Tab PO SCH (11:20)
[2016-11-22] MEDS: FOLVITE PO SCH (11:20)
--- NOTE | 2016-11-22 12:54 | Consultation ---
History of Present Illness Consult date: 11/22/16 Consult reason: syncope History of present illness: 51 year old female with no past medical history of cardiovascular disease presenting after an episode of syncope and possible seizure activity. Patient was sitting when she lost consciousness. Patient has baseline resting tremors. A regular treadmill stress test was ordered today but staff were uncomfortable to place patient on treadmill due to her tremors and imbalance. It was changed to a lexiscan that was later cancelled due to history of potential seizure. Patient denies chest pain or shortness of breath. ECG is normal, Geraldo are normal and echo is showing normal LVEF. Patient admits alcohol abuse - she had 6 packs of beer on Sunday and did not have anything to drink yesterday. She admits experiencing withdrawal symptoms. Past History Past Medical History: No medical history Past Surgical History: No surgical history Social history: smoking (1 ppd), alcohol abuse (6 to 8 beers per day) Family history: no significant family history Medications and Allergies Allergies Allergy/AdvReac Type Severity Reaction Status Date / Time codeine Allergy Rash Verified 11/21/16 16:27 Home Medications Medication Instructions Recorded Confirmed Last Taken Type No Known Home Medications [No 11/21/16 11/21/16 Unknown History Reported Home Medications] Active Meds: Active Medications Acetaminophen (Tylenol) 650 mg PO Q4H PRN PRN Reason: Pain MILD(1-3)/Fever >100.5/HOLT Bisacodyl (Dulcolax) 10 mg NE QDAY PRN PRN Reason: Constipation unrelieved by MOM Enoxaparin Sodium (Lovenox) 40 mg SUB-Q QDAY [facility] Last Admin: 11/22/16 11:20 Dose: 40 mg Folic Acid (Folvite) 1 mg PO QDAY [facility] Last Admin: 11/22/16 11:20 Dose: 1 mg Hydromorphone HCl (Dilaudid) 0.5 mg IV Q3H PRN PRN Reason: Pain , Severe (7-10) Magnesium Hydroxide (Milk Of Magnesia) 30 ml PO Q4H PRN PRN Reason: Constipation Multivitamins (Theragran Tab) 1 each PO QDAY [facility] Last Admin: 11/22/16 11:20 Dose: 1 each Ondansetron HCl (Zofran) 4 mg IV Q8H PRN PRN Reason: N/V unrelieved by Reglan Oxycodone/Acetaminophen (Percocet 5/325) 1 tab PO Q6H PRN PRN Reason: Pain, Moderate (4-6) Last Admin: 11/22/16 04:21 Dose: 1 tab Thiamine HCl (Vitamin B-1) 100 mg PO QDAY EDDI Last Admin: 11/22/16 11:20 Dose: 100 mg Zolpidem Tartrate (Ambien) 5 mg PO QHS PRN PRN Reason: Insomnia Review of Systems All systems: negative Physical Examination Vital Signs Temp Pulse Resp BP Pulse Ox 97.6 F 104 H 18 142/82 96 11/21/16 15:40 11/21/16 15:40 11/21/16 15:40 11/21/16 15:40 11/21/16 15:40 General appearance: no acute distress HEENT: Positive: PERRL Neck: Positive: neck supple Cardiac: Positive: Reg Rate and Rhythm Lungs: Positive: Normal Exam Results 11/22/16 05:37 11/22/16 05:37 Cardiac Enzymes 11/21/16 11/22/16 Range/Units 23:23 05:37 AST 48 H (5-40) units/L CK-MB (CK-2) 3.6 3.6 (0.0-4.0) ng/mL CBC 11/22/16 Range/Units 05:37 WBC 5.3 (4.5-11.0) K/mm3 RBC 4.74 (3.65-5.03) M/mm3 Hgb 13.3 (10.1-14.3) gm/dl Hct 39.4 (30.3-42.9) % Plt Count 184 (140-440) K/mm3 Lymph # 1.2 (1.2-5.4) K/mm3 [place] # 0.4 (0.0-0.8) K/mm3 Eos # 0.2 (0.0-0.4) K/mm3 Baso # 0.0 (0.0-0.1) K/mm3 Comprehensive Metabolic Panel 11/22/16 Range/Units 05:37 Sodium 137 (137-145) mmol/L Potassium 3.8 (3.6-5.0) mmol/L Chloride 93.8 L (98-107) mmol/L Carbon Dioxide 25 (22-30) mmol/L BUN 3 L (7-17) mg/dL Creatinine 0.3 L (0.7-1.2) mg/dL Glucose 79 (65-100) mg/dL Calcium 9.0 (8.4-10.2) mg/dL AST 48 H (5-40) units/L ALT 44 (7-56) units/L Alkaline Phosphatase 63 (35-129) units/L Total Protein 6.7 (6.3-8.2) g/dL Albumin 4.0 (3.9-5) g/dL Assessment and Plan Syncope Normal ECG No arrhythmias on tele Normal Geraldo Normal LVEF Alcohol abuse Nicotine dependence Recommendations: Stress test cancelled due to resting tremors, imbalance and possible seizure activity Recommend to control her withdrawal symptoms and rule out seizure disorder before proceeding with ischemic work-up Alcohol and Nicotine abstinence
[2016-11-22] MEDS ORDERED: ATIVAN IV PRN ×2 (16:03)
[2016-11-23] MEDS: FOLVITE PO SCH (09:32)
[2016-11-23] MEDS: LOVENOX SUB-Q SCH (09:32)
[2016-11-23] MEDS: VITAMIN B-1 PO SCH (09:32)
[2016-11-23] MEDS: THERAGRAN Tab PO SCH (09:33)
--- NOTE | 2016-11-23 11:38 | Progress Note ---
<ADRIÁN BAUTISTA - Last Filed: 11/23/16 11:36> Assessment and Plan Syncope Normal ECG No arrhythmias on tele Normal Geraldo Normal LVEF Alcohol abuse Nicotine dependence Recommendations: Rule out seizure disorder before proceeding with ischemic work-up. Alcohol and Nicotine abstinence. Subjective Date of service: 11/23/16 Interval history: Patient denies chest pain and shortness of breath. Objective Vital Signs Temp Pulse Resp BP Pulse Ox 11/23/16 06:50 98.3 F 80 18 155/80 97 11/23/16 00:34 98.1 F 75 20 137/79 91 11/22/16 20:39 98.7 F 81 20 130/73 95 11/22/16 17:29 97.1 F L 88 18 120/80 98 11/22/16 14:00 88 11/22/16 13:20 97.8 F 80 18 155/85 95 - Physical Examination General: No Apparent Distress HEENT: Positive: PERRL Neck: Positive: trachea midline Cardiac: Positive: Reg Rate and Rhythm Lungs: Positive: Decreased Breath Sounds Skin: Positive: Bruising (facial) - Imaging and Cardiology EKG: report reviewed (NSR non specific ST T wave changes) <DMITRIY KENT - Last Filed: 11/23/16 17:10> Assessment and Plan - Patient Problems (1) Syncope Status: Acute Qualifiers: Syncope type: S Encounter type: initial encounter Qualified Code(s): T67.1XXA - Heat syncope, initial encounter Plan to address problem: Cardiac consultation was for possible syncope. The patient states that she has a history of seizure disorder, and likely had a seizure. We performed an echocardiogram that revealed well-preserved left ventricle systolic function. A thallium stress test was ordered, but was not able to be completed due to the patient's ongoing symptoms of alcohol withdrawal. Today, she is in her room with her at the bedside, and insists on going home. I recommended that with a history of possible syncope, and multiple risk factors including chronic tobacco abuse, we strongly prefer that she undergoes a thallium stress test prior to discharge. She refuses, states that she wants to go home and her admits that the patient once to go home and resume smoking cigarettes. She does plan to come to our office on [facility] as an outpatient for thallium stress testing. Objective Vital Signs Temp Pulse Resp BP Pulse Ox 11/23/16 12:00 97.6 F 88 18 128/84 97 11/23/16 08:00 98.5 F 79 18 111/67 95 11/23/16 06:50 98.3 F 80 18 155/80 97 11/23/16 00:34 98.1 F 75 20 137/79 91 11/22/16 20:39 98.7 F 81 20 130/73 95 11/22/16 17:29 97.1 F L 88 18 120/80 98
--- NOTE | 2016-11-23 12:02 | Discharge Summary ---
Providers - Providers Date of Admission: 11/21/16 21:57 Date of discharge: 11/23/16 Attending physician: MAYRA KAUFMAN MD 11/22/16 09:10 Consult to Physician [CONS] Routine Consulting Provider: RUDY REILLY Reason For Exam: recurrent syncope Place consult to:: [facility] Notified:: jessica Was contact made?: Yes If yes, spoke with:: jessica Time called:: 09:26 Primary care physician: [facility] Hospitalization Reason for admission: syncope Condition: Good Hospital course: 51 y/o female with no significant PMH except for Etoh and Nicotine dependence comes in for passing out suddenly.She was in a sitting posture and felt lightheaded. Fell to ground and sustained superficial abrasions to face. LOC for a a minute or two. No seizures. Family was a witness to her syncope. No chest pain. No SOB . No diaphoresis /Palpitations. No neck pain. She does demonstrate full range of motion in her neck. She reports a prior episode about 6 months ago similar to the same incident. She denies any seizure history. ON Admission a stress test was recommended and can be done outpatient once withdrawal symptoms total resolved. patient and verbalized understanding and recomendation not to engage in any exertional activity until this is done. Echocardiogram was done, did not reveal any Aortic stenosis per report but showed evidence of diastolic heart failure. Patient was counselled to quit tobacco and alcohol abuse, 15 mins was spent on counselling. she is clincally stable for discharge at this time and is to follow with cardiology. all findings, diagnosis and medications were explained in detail (1) Vaso vagal Syncope (2) Alcohol dependence (3) Nicotine dependence (4) Facial abrasion (5)Chronic Diastolic Heart failure with preserved LVEF (6) Possible underlying COPD Disposition: DC-01 TO HOME OR SELFCARE Time spent for discharge: 35 mins Core Measure Documentation - Palliative Care Palliative Care/ Comfort Measures: Not Applicable - Core Measures Any of the following diagnoses?: heart failure - VTE Discharge Requirements Deep Vein Thrombosis/Pulmonary Embolism Present on Admission: No - Heart Failure Discharge Requirements GAMALIEL/ARB for LVSD if EF <40%: Not Applicable Beta aicha at discharge: No Reason for no beta aicha on DC: COPD Exam - Physical Exam Narrative exam: VITAL SIGNS: Reviewed. GENERAL: The patient appeared well nourished and normally developed. Chronic smoker's cough. Vital signs as documented. HEAD: No signs of head trauma. EYES: Pupils are equal. Extraocular motions intact. EARS: Hearing grossly intact. MOUTH: Oropharynx is normal. NECK: No adenopathy, no JVD. CHEST: Chest with diminshed breath sounds bilaterally. No wheezes, rales, or rhonchi. CARDIAC: Regular rate and rhythm. S1 and S2, without murmurs, gallops, or rubs. VASCULAR: No Edema. Peripheral pulses normal and equal in all extremities. ABDOMEN: Soft, without detectable tenderness. No sign of distention. No rebound or guarding, and no masses palpated. Bowel Sounds normal. MUSCULOSKELETAL: Good range of motion of all major joints. Extremities without clubbing, cyanosis or edema. NEUROLOGIC EXAM: Alert and oriented x 3. No focal sensory or strength deficits. Speech normal. Follows commands. PSYCHIATRIC: Mood normal. SKIN: Facial abrasions on the forehead and also the bridge of the nose. No tenderness appreciated. - Constitutional Vitals: Temp Pulse Resp BP Pulse Ox 98.5 F 79 18 111/67 95 11/23/16 08:00 11/23/16 08:00 11/23/16 08:00 11/23/16 08:00 11/23/16 08:00 Plan Activity: advance as tolerated, fall precautions Diet: low fat Special Instructions: record daily BP diary, smoking cessation, other (must quit alcohol) Follow up with: PRIMARY CARE, [Primary Care Provider] - 3-5 Days LADY PAYTON MD [Staff Physician] - 7 Days Prescriptions: Folic Acid [Folvite] 1 mg PO QDAY #30 tablet Multivitamin Tab [Multiple Vitamin TAB (Theragran)] 1 each PO QDAY #30 tablet Thiamine [Vitamin B-1] 100 mg PO QDAY #30 tablet
[2016-11-23 13:23] VITALS: BP 128/84
--- NOTE | 2016-11-28 10:04 | Vascular Lab Report ---
CAROTID DUPLEX STUDY: RIGHT PSVEDV CCA PROX:[id number] CCA DIST: 8119 ICA PROX: 7722 ICA MID: 7928 ICA DIST: 6124 ECA: 7115 VERT: 52 8 LEFT PSVEDV CCA PROX: 8121 CCA DIST: 8321 ICA PROX: 7820 ICA MID: 9233 ICA DIST: 7629 ECA: 7014 VERT: 65 18 REASON FOR EXAM: Carotid artery stenosis. COMMENTS ON THE RIGHT: Doppler frequency analysis is consistent with 16 to 49 percent diameter reduction of the internal carotid artery. Minimal amount of plaque is seen. The common carotid artery is patent. The external carotid artery is patent. The vertebral artery has antegrade flow. COMMENTS ON THE LEFT: Doppler frequency analysis is consistent with 16 to 49 percent diameter reduction of the internal carotid artery. Minimal amount of plaque is seen. The common carotid artery is patent. The external carotid artery is patent. The vertebral artery has antegrade flow. IMPRESSION: Less than 50% diameter reduction in the internal carotid arteries bilaterally. Consider repeat carotid artery duplex in 12 months.
== END 2016-11-23 15:34 | disposition home or self-care (01) | DRG 605 ==
LOC: ED 15:32 → 4A 21:57
PROVIDERS: ADMIT Internal Medicine; ATTEND Internal Medicine
DX: S00.81XA Abrasion of other part of head, initial encounter (principal); I50.32 Chronic diastolic (congestive) heart failure; F10.20 Alcohol dependence, uncomplicated; R55 Syncope and collapse; I11.0 Hypertensive heart disease with heart failure; F17.210 Nicotine dependence, cigarettes, uncomplicated; J44.9 Chronic obstructive pulmonary disease, unspecified; W18.39XA Other fall on same level, initial encounter; Y93.89 Activity, other specified; Y92.89 Other specified places as the place of occurrence of the external cause; Y99.8 Other external cause status
CPT/HCPCS: 36415; 70450; 71010; 80053; 80320; 81001; 82550; 82553; 83735; 84100; 84484; 85025; 85610; 90471; 90715; 93005; 93010; 93306; 93880; 96374; G0480; J1650; J3411; J7030; J7042